=== PATIENT | male | born 2005 | race Caucasian/White ===

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

== ENCOUNTER 2024-01-24 05:06 | Emergency (ER) | payer OTHER, SELFPAY ==
[2024-01-24 05:08] VITALS: BP 151/100; PULSE 112; RESP 18; TEMP 36.8; O2SAT 100
--- NOTE | 2024-01-24 05:27 | ED.ANXIETY ---
HPI - Anxiety General Chief Complaint: Anxiety Stated Complaint: nvd Time Seen by Provider: 01/24/24 05:21 Source: patient Mode of arrival: ambulatory Limitations: no limitations History of Present Illness HPI narrative: This is a 18-year-old male who presents with anxiety and having panic attacks had nausea and vomiting earlier currently nauseated with no vomiting no fever chills no chest pain no shortness of breath has a history of anxiety. MD complaint: anxiety Onset (ago): day(s) Severity: moderate Quality: intermittent Provoking factors: emotional stress Relieving factors: nothing Exacerbating factors: nothing Related Data Home Medications Medication Instructions Recorded Confirmed atomoxetine 40 mg capsule 40 mg PO DAILY 01/24/24 01/24/24 Allergies Allergy/AdvReac Type Severity Reaction Status Date / Time acetaminophen Allergy Mild Unknown Verified 01/24/24 05:12 Review of Systems Review of Systems: All systems reviewed & are unremarkable except as noted in HPI and below PMFSH Past Medical History Medical History Anxiety Exam Const: General: healthy appearing and no acute distress Nutritional Appearance: well nourished Orientation/consciousness: patient oriented x3 Limitations: no limitations HENMT: Head: normal to inspection Neck: Neck: normal visual inspection Chest: Chest palpation & inspection: normal inspection of the chest Resp: Effort & Inspection: normal respiratory effort Auscultation: clear to auscultation bilaterally Cardio: Rate: regular rate Rhythm: regular rhythm GI: GI Palp: Yes Soft to palpation Auscultation: normal bowel sounds : General: Yes bladder normal to palpation Urinary Catheter: Urinary Catheter: patent and draining Back/Spine/Pelvis: Back: no CVA tenderness Skin: General skin exam: normal color Neuro: General: patient oriented x3, moves all extremities, no meningeal signs and no focal motor deficits Extrem: General: normal to inspection, no clubbing, cyanosis or edema and no pedal edema Psych: Affect: Anxious affect present Course Course Emergency Course: reviewed and I think normal limits patient received dose Zofran and Xanax reassessment of patient has symptoms have improved. Vital Signs Vital signs: Vital Signs Temperature 36.8 C 01/24/24 05:08 Pulse Rate 112 H 01/24/24 05:08 Respiratory Rate 18 01/24/24 05:08 Blood Pressure 151/100 H 01/24/24 05:08 Pulse Oximetry 100 01/24/24 05:08 Oxygen Delivery Room Air 01/24/24 05:08 Temperature 36.8 C 01/24/24 05:08 Pulse Rate 112 H 01/24/24 05:08 Respiratory Rate 18 01/24/24 05:08 Blood Pressure 151/100 H 01/24/24 05:08 Pulse Oximetry 100 01/24/24 05:08 Oxygen Delivery Room Air 01/24/24 05:08 Critical Care Time Critical Care Time Critical Care Time: No Discharge Plan Discharge Clinical Impression: Acute anxiety, Panic disorder Patient Disposition: Home, Self-Care Condition: Stable Instructions: Antibiotic Form, Panic Disorder (ED), Anxiety (ED) Additional Instructions: Advised take medicine as prescribed and follow-up with primary care within the next 3 to 4 days for further evaluation and treatment. Prescriptions: New alprazolam [Xanax] 0.5 mg tablet 0.5 mg PO BID PRN (Reason: anxiety) Qty: 20 0RF ondansetron 4 mg tablet,disintegrating 4 mg PO Q6H PRN (Reason: nausea and vomiting) Qty: 10 0RF potassium chloride 20 mEq tablet extended release 20 meq PO BID 3 Days Qty: 6 0RF No Action atomoxetine 40 mg capsule 40 mg PO DAILY Follow-up/Referrals: Jeanna,AKASH Reyes [Primary Care Provider] - Time of Disposition: 06:38
[2024-01-24] MEDS: ONDANSETRON HCL ODT 4 MG TABLET PO (05:34)
[2024-01-24] MEDS: ALPRAZolam (*CRX) 0.5 MG TABLET PO (05:34)
[2024-01-24 05:56] LABS: Basophils Absolute Auto 0.02 K/mm3 (0.00-0.10); Basophils Percent Auto 0.2 % (0.0-1.0); Eosinophils Absolute Auto 0.04 K/mm3 (0.02-0.50); Eosinophils Percent Auto 0.4 % (1.0-6.0); Hematocrit 42.9 % (40.0-54.0); Hemoglobin 14.8 g/dL (14.0-18.0); Immature Granulocyte Absolute 0.04 K/mm3 (0.00-0.00); Immature Granulocyte Percent A 0.4 % (0.0-0.0); Lymphocytes Absolute Auto 1.13 K/mm3 (1.10-4.50); Lymphocytes Percent Auto 11.4 % (18.0-42.0); Mean Corpuscular HGB Conc 34.5 g/dL (32-36); Mean Corpuscular Hemoglobin 27.7 pg (27.0-31.0); Mean Corpuscular Volume 80.2 fL (78.0-102.0); Mean Platelet Volume 9.8 fl (8.7-11.0); Monocytes Absolute Auto 0.33 K/mm3 (0.10-0.90); Monocytes Percent Auto 3.3 % (2.0-11.0); Neutrophils Absolute Auto 8.36 K/mm3 (1.70-7.20); Neutrophils Percent Auto 84.3 % (50.0-70.0); Platelet Count Result 226 K/mm3 (150-420); Red Blood Count 5.35 M/mm3 (4.70-6.10); Red Cell Distribution Width 11.4 % (11.6-14.4); White Blood Count 9.9 K/mm3 (4.8-10.8)
[2024-01-24 06:10] LABS: Alanine Aminotransferase 17 U/L (16-63); Albumin Level 4.4 g/dL (3.4-5.0); Alkaline Phosphatase 84 U/L (46-116); Anion Gap 8 mmol/L (4-12); Aspartate Amino Transferase 20 U/L (15-37); Bilirubin,Total 0.7 mg/dL (0.00-1.00); Blood Urea Nitrogen 10 mg/dL (7-18); Carbon Dioxide 30 mmol/L (21-32); Chloride 98 mmol/L (98-108); Estimated CRCL calculation 93 ml/min; Estimated Glomerular Filt Rate > 60; Glucose 93 mg/dL (70-99); Osmolality Calculated 281 mOsm/kg (285-295); Potassium 3.3 mmol/L (3.5-5.1); Sodium 136 mmol/L (136-145); Total Protein 7.6 g/dL (6.4-8.2)
[2024-01-24] MEDS: POTASSIUM BICARBONATE 25 MEQ TABEF 50 MEQ PO (06:40)
== END 2024-01-24 06:50 | disposition home or self-care (01) ==
LOC: CHSED 05:34
PROVIDERS: Emergency Provider Emergency Medicine; PCP Physician Assistant
DX: F41.0 Panic disorder [episodic paroxysmal anxiety] (principal)
CPT/HCPCS: 36415; 80053; 85025; 99283; A9270

== ENCOUNTER 2024-01-24 18:51 | Emergency (ER) | payer OTHER, SELFPAY ==
[2024-01-24 18:55] VITALS: BP 130/90; PULSE 101; RESP 18; TEMP 36.6; O2SAT 98
--- NOTE | 2024-01-24 19:05 | ED.NAVMDI ---
HPI - Nausea/Vomiting/Diarrhea General Chief complaint: Nausea/Vomiting/Diarrhea Stated complaint: vomiting Time Seen by Provider: 01/24/24 19:03 Source: patient and family Mode of arrival: ambulatory Limitations: no limitations History of Present Illness HPI Narrative: Patient is a 18-year-old male with anxiety and depression. He also has ADD. He does not take his anxiety or depression medicine regularly. He was seen this morning and given some Xanax and Zofran. He had a workup that was negative. He was found to have a panic attack. He is back in the emergency room with a panic attack again. I have given him another 1 of his 0.5 mg Xanax at this time and we will monitor him. We discussed that he needs to see his counselor and take his day-to-day medicine. MD elicited complaint: nausea and vomiting Pertinent past history: anorexia Onset (ago): day(s) Description of vomiting: watery Associated nausea: Yes Associated abdominal pain: No Location of pain: none Severity: mild Pain scale (0-10): 0 Exacerbating factors: other ( Recurrent panic and anxiety for the past 2 days) Relieving factors: other ( Xanax was helpful) Associated symptoms: nausea/vomiting, anxiety and other ( numbness and tingling; impending doom) Treatment prior to arrival: other ( Xanax and Zofran and potassium) Related Data Home Medications Medication Instructions Recorded Confirmed atomoxetine 40 mg capsule 40 mg PO DAILY 01/24/24 01/24/24 Allergies Allergy/AdvReac Type Severity Reaction Status Date / Time acetaminophen Allergy Mild Unknown Verified 01/24/24 05:12 Review of Systems Review of Systems: All systems reviewed & are unremarkable except as noted in HPI and below Constitutional: Constitutional: Reports no additional constitutional complaints Eyes: Eyes: Reports no additional eye complaints ENT: Reports system reviewed and no additional complaints, except as documented Cardiovascular: Cardiovascular: Reports no additional cardiovascular complaints Respiratory: Respiratory: Reports no additional respiratory complaints Gastrointestinal: Gastrointestinal: Reports no additional gastrointestinal complaints Genitourinary: Genitourinary: Reports no additional male genitourinary complaints Musculoskeletal: Musculoskeletal: Reports no additional musculoskeletal complaints Integumentary/Breasts: Skin/Breast: Reports system reviewed and no additional complaints, except as docu Neurologic: Reports system reviewed and no additional complaints, except as documented Psychiatric: Psychiatric: Reports no additional psychiatric complaints Endocrine: Endocrine: Reports no additional endocrine complaints Hematologic/Lymphatic: Hematologic/Lymphatic: Reports no additional hematologic/lymphatic complaints Allergic/Immunologic: Allergic/Immunologic: Reports no additional allergic/immunologic complaints [facility] Past Medical History Medical History Anxiety Social History Social History Substance use type: does not use Exam Const: General: healthy appearing Nutritional Appearance: well nourished Orientation/consciousness: patient oriented x3 Other: panicky and anxious HENMT: Head: normal to inspection Ears: external ears normal Face/Nose/Sinus: Normal external nose present Eyes: Conjunctivae: conjunctivae normal Cornea: corneas normal Pupils: Equal, round and reactive pupils present Neck: Neck: normal visual inspection Chest: Chest palpation & inspection: normal inspection of the chest Resp: Effort & Inspection: normal respiratory effort and not labored Auscultation: clear to auscultation bilaterally Cardio: Rate: regular rate Rhythm: regular rhythm Heart sounds: no murmurs GI: Inspection: non-distended GI Palp: Yes Soft to palpation and No Tenderness to palpation present (GI) Auscultation: normal bowel
[2024-01-24 20:15] VITALS: BP 115/79; PULSE 83; RESP 20; O2SAT 100
== END 2024-01-24 20:25 | disposition home or self-care (01) ==
PROVIDERS: Emergency Provider Emergency Medicine; PCP Physician Assistant
DX: F41.0 Panic disorder [episodic paroxysmal anxiety] (principal)
CPT/HCPCS: 99283

== ENCOUNTER 2024-02-11 05:48 | Emergency (ER) | payer OTHER, SELFPAY ==
[2024-02-11 05:48] VITALS: BP 137/85; PULSE 75; RESP 18; TEMP 36.6; O2SAT 95
--- NOTE | 2024-02-11 05:49 | ED.EAR ---
HPI - Ear Problem General Chief complaint: Unspecified Stated complaint: unspecified Time Seen by Provider: 02/11/24 05:48 Source: patient Mode of arrival: ambulatory Limitations: no limitations History of Present Illness HPI Narrative: 18-year-old male with a history of anxiety / depression, ADD presents to the ED with multiple complaints. He complains of -- numbness between his jaw and ear -- a rushing sensation going to his head -- abdominal discomfort -- anxiety the patient is on BuSpar, hydroxyzine, Zofran and Strattera. Location: right ear Relieving factors: nothing Exacerbating factors: nothing Discharge from ear: Reports no Related Data Home Medications Medication Instructions Recorded Confirmed buspirone 5 mg tablet 5 mg PO BID 02/11/24 02/11/24 hydroxyzine HCl 25 mg tablet 25 mg PO TID PRN Anxiety 02/11/24 02/11/24 Allergies Allergy/AdvReac Type Severity Reaction Status Date / Time acetaminophen Allergy Mild Unknown Verified 02/11/24 05:50 Review of Systems Review of Systems: All systems reviewed & are unremarkable except as noted in HPI and below Constitutional: Constitutional: Reports weakness Eyes: Eyes: Reports as per HPI and Reports no additional eye complaints ENT: Reports system reviewed and no additional complaints, except as documented, Reports as per HPI and Reports sore throat Comments: discomfort around his right ear. Cardiovascular: Cardiovascular: Reports as per HPI and Reports no additional cardiovascular complaints Respiratory: Respiratory: Reports as per HPI and Reports no additional respiratory complaints Gastrointestinal: Gastrointestinal: Reports as per HPI and Reports no additional gastrointestinal complaints Genitourinary: Genitourinary: Reports no additional male genitourinary complaints and Reports as per HPI Musculoskeletal: Musculoskeletal: Reports no additional musculoskeletal complaints and Reports as per HPI Integumentary/Breasts: Skin/Breast: Reports system reviewed and no additional complaints, except as docu and Reports as per HPI Neurologic: Reports system reviewed and no additional complaints, except as documented and Reports as per HPI Psychiatric: Psychiatric: Reports no additional psychiatric complaints and Reports as per HPI Endocrine: Endocrine: Reports no additional endocrine complaints and Reports as per HPI Hematologic/Lymphatic: Hematologic/Lymphatic: Reports no additional hematologic/lymphatic complaints and Reports as per HPI Allergic/Immunologic: Allergic/Immunologic: Reports no additional allergic/immunologic complaints and Reports as per HPI [facility] Past Medical History Medical History (Updated 02/11/24 @ 06:24 by Virgil Sheehan MD) Anxiety Panic Social History Social History Substance use type: does not use Exam Narrative: vitals are stable Const: General: healthy appearing and no acute distress Nutritional Appearance: well nourished Orientation/consciousness: patient oriented x3 Limitations: no limitations HENMT: Head: normal to inspection Ears: external ears normal Face/Nose/Sinus: Normal external nose present Face and sinus: normal facial exam Mouth: Yes Normal oral and palatal mucosa present Eyes: Conjunctivae: conjunctivae normal Pupils: Equal, round and reactive pupils present EOM: EOMs intact bilaterally Direct Ophthalmoscopy: no photophobia Neck: Neck: normal visual inspection, no lymphadenopathy and no meningeal signs Chest: Chest palpation & inspection: normal inspection of the chest Resp: Effort & Inspection: normal respiratory effort Auscultation: clear to auscultation bilaterally Cardio: Rate: regular rate Rhythm: regular rhythm GI: Other: no tenderness/ rigidity /rebound. : General: Yes no CVA tenderness Back/Spine/Pelvis: Back: no CVA tenderness Skin: General skin exam: normal color Other: Follicular
[2024-02-11] MEDS: ALPRAZolam (*CRX) 0.5 MG TABLET PO (06:29)
== END 2024-02-11 06:30 | disposition home or self-care (01) ==
PROVIDERS: Emergency Provider Internal Medicine Critical Care Medicine; PCP Physician Assistant
DX: F41.0 Panic disorder [episodic paroxysmal anxiety] (principal); Z79.899 Other long term (current) drug therapy
CPT/HCPCS: 99283; A9270

== ENCOUNTER 2024-02-14 07:08 | Emergency (ER) | payer OTHER, SELFPAY ==
[2024-02-14 07:08] VITALS: BP 148/100; PULSE 108; RESP 18; TEMP 36.8; O2SAT 98
--- NOTE | 2024-02-14 07:23 | ED.MALEGU ---
HPI - Male Genitourinary General Chief complaint: Urogenital-Male Stated complaint: Testicle Problem Time Seen by Provider: 02/14/24 07:10 Source: patient Mode of arrival: ambulatory Limitations: no limitations History of Present Illness HPI Narrative: Patient is a 18-year-old male with left testicle pain 20-30 minutes ago. This is an unprovoked event. No injury. He has some cloudy urine per complaints. MD Complaint: testicle pain ( Left) Onset (ago): minute(s) (30) Duration: constant Location: left testicle Radiation: left testicle Severity: moderate Severity scale (1-10): 4 Quality: sharp Relieving factors: none Exacerbating factors: palpation Context: other ( unprovoked left testicle pain) Associated symptoms: Reports denies other symptoms Related Data Home Medications Medication Instructions Recorded Confirmed buspirone 5 mg tablet 5 mg PO BID 02/11/24 02/11/24 hydroxyzine HCl 25 mg tablet 25 mg PO TID PRN Anxiety 02/11/24 02/11/24 Allergies Allergy/AdvReac Type Severity Reaction Status Date / Time acetaminophen Allergy Mild Unknown Verified 02/14/24 07:17 Review of Systems Review of Systems: All systems reviewed & are unremarkable except as noted in HPI and below Constitutional: Constitutional: Reports no additional constitutional complaints Eyes: Eyes: Reports no additional eye complaints ENT: Reports system reviewed and no additional complaints, except as documented Cardiovascular: Cardiovascular: Reports no additional cardiovascular complaints Respiratory: Respiratory: Reports no additional respiratory complaints Gastrointestinal: Gastrointestinal: Reports no additional gastrointestinal complaints Genitourinary: Genitourinary: Reports no additional male genitourinary complaints Musculoskeletal: Musculoskeletal: Reports no additional musculoskeletal complaints Integumentary/Breasts: Skin/Breast: Reports system reviewed and no additional complaints, except as docu Neurologic: Reports system reviewed and no additional complaints, except as documented Psychiatric: Psychiatric: Reports no additional psychiatric complaints Endocrine: Endocrine: Reports no additional endocrine complaints Hematologic/Lymphatic: Hematologic/Lymphatic: Reports no additional hematologic/lymphatic complaints Allergic/Immunologic: Allergic/Immunologic: Reports no additional allergic/immunologic complaints PMFSH Past Medical History Medical History Anxiety Panic Social History Social History Substance use type: does not use Exam Const: General: healthy appearing Nutritional Appearance: well nourished Limitations: no limitations HENMT: Head: normal to inspection Ears: TM's normal bilaterally Face/Nose/Sinus: Normal external nose present Eyes: Conjunctivae: conjunctivae normal Pupils: Equal, round and reactive pupils present EOM: EOMs intact bilaterally Neck: Neck: normal visual inspection Chest: Chest palpation & inspection: normal inspection of the chest Resp: Effort & Inspection: normal respiratory effort Auscultation: clear to auscultation bilaterally Cardio: Rate: regular rate Rhythm: regular rhythm Heart sounds: no murmurs GI: Inspection: non-distended GI Palp: Yes Soft to palpation and No Tenderness to palpation present (GI) Auscultation: normal bowel sounds : General: Yes bladder normal to palpation Testes: epididymal tenderness on the left, testicular swelling on the left and diffuse and testicular tenderness on the left Back/Spine/Pelvis: Back: no CVA tenderness Skin: General skin exam: normal color Rashes: no rashes Wounds: no wounds Neuro: General: patient oriented x3 Cranial nerves: Yes CN's II-XII intact bilaterally Speech: normal speech Gait exam (Neuro): Normal gait present Extrem: General: normal to inspection Psych: Mental Status: mental status fer
[2024-02-14 07:53] LABS: Appearance Urine Clear (Clear); Bilirubin Urine Negative (Negative); Blood Urine Trace-intact (Negative); Color Urine Light Yellow (Yellow); Glucose Urine UA Negative (Negative); Ketones Urine Negative (Negative); Leukocyte Esterase Ur Negative LEU/UL (Negative); Nitrate Urine Negative (Negative); Protein Urine Negative (Negative); Urobilinogen Urine 0.2 mg/dL (0.2-1.0)
[2024-02-14 07:58] LABS: Add Urine Microscopic? YES; RBC Urine 0-2 /hpf (0-2)
[2024-02-14 08:19] VITALS: BP 139/97; PULSE 98; RESP 18; O2SAT 97
[2024-02-14 10:11] VITALS: BP 131/90; PULSE 104; RESP 16; O2SAT 98
[2024-02-17 13:20] LABS: Chlamydia trachomatis NOT DETECTED (NOT DETECTE); Neisseria gonorrhoeae PCR NOT DETECTED (NOT DETECTE)
== END 2024-02-14 10:27 | disposition home or self-care (01) ==
PROVIDERS: Emergency Provider Emergency Medicine; PCP Physician Assistant
DX: N50.812 Left testicular pain (principal); Z11.3 Encounter for screening for infections with a predominantly sexual mode of transmission
CPT/HCPCS: 76870; 81001; 87491; 87591; 93976; 99283

== ENCOUNTER 2024-02-14 08:59 | Outpatient (CLI) | payer OTHER, SELFPAY ==
--- NOTE | ~2024-02-14 | US_ITS ---
US scrotum doppler DATE: 02/14/2024 09:34 INDICATION: Left scrotal intermittent pain TECHNIQUE: Real-time and color flow imaging of the scrotal contents, Doppler analysis of the testicle s COMPARISON: None FINDINGS: Right testicle measures 4.0 x 2.3 x 4.3 cm. There is homogeneous echotexture of the right t esticle, with no evidence of right testicular mass lesion. There is a 2 mm cyst in the head of the right epididymis. The left testicle measures 4.3 x 2.3 x 2.9 cm. There is homogeneous symmetric echotexture of the left testicle, no evidence of testicular mass lesion. Small left hydrocele. There is symmetric color flow signal of the testicles. IMPRESSION: No testicular mass lesion or torsion Small left hydrocele Reviewed, dictated and finalized at [facility] Reviewed, dictated and finalized at [facility].
== END 2024-02-14 09:00 | disposition home or self-care (01) ==
LOC: ANHED 09:07
PROVIDERS: PCP Physician Assistant; Visit Provider Emergency Medicine
DX: N50.812 Left testicular pain (principal); N43.3 Hydrocele, unspecified
CPT/HCPCS: 76870; 93976

== ENCOUNTER 2024-03-29 22:26 | Emergency (ER) | payer OTHER, SELFPAY ==
[2024-03-29 22:26] VITALS: BP 124/85; PULSE 87; RESP 18; TEMP 36.6; O2SAT 100
--- NOTE | 2024-03-29 22:44 | ED.ANXIETY ---
HPI - Anxiety General Chief Complaint: Anxiety Stated Complaint: Wellness Check Time Seen by Provider: 03/29/24 22:42 Source: patient Mode of arrival: ambulatory Limitations: no limitations History of Present Illness HPI narrative: patient is 18 years old white male came to the emergency room complaining of intermittent pain at the wrists, sometime at the knee and at the shoulder for the last 2 months. Over the last 2 days been seeing like diagonal line in his visual field when he closes eyes when you open his eyes, everything back to normal. He denies any fever, chills, nausea, vomiting, headache, or diplopia. Patient reported history of stress and bipolar started on new medication 1 month ago. Patient drop of by private car to the emergency room. patient is telling me that he does not have friends or girlfriend's or a shop. His been the most of his days inside the house. He denies any suicidal or homicidal ideation Related Data Home Medications Medication Instructions Recorded Confirmed buspirone 5 mg tablet 5 mg PO BID 02/11/24 03/29/24 hydroxyzine HCl 25 mg tablet 25 mg PO TID PRN Anxiety 02/11/24 03/29/24 bupropion HCl 150 mg 24 hr tablet, 150 mg PO DAILY 03/29/24 03/29/24 extended release lamotrigine 25 mg tablet 25 mg PO HS 03/29/24 03/29/24 Allergies Allergy/AdvReac Type Severity Reaction Status Date / Time acetaminophen Allergy Mild Unknown Verified 03/29/24 22:31 Review of Systems Review of Systems: All systems reviewed & are unremarkable except as noted in HPI and below PMFSH Past Medical History Medical History Anxiety Panic Social History Social History Substance use type: does not use Exam Narrative: General appearance: Well-developed, well-nourished Skin: Normal color Head: Normocephalic, nontraumatic Eyes: Clear conjunctiva ENT: Oropharynx normal, ears normal, nose normal Neck: Supple, nontender Chest and respiratory: Airway patent, no respiratory distress, no accessory muscle use Heart: Regular rate/rhythm Abdomen: Soft, nontender, no organomegaly, quiet bowel sounds Vascular: Normal peripheral pulses, normal capillary refill. Musculoskeletal: Normal range of motion, nontender back Neurologic: Alert and oriented ?3, [employer] is normal as tested, no gross motor deficit Course Vital Signs Vital signs: Vital Signs Temperature 36.6 C 03/29/24 22:26 Pulse Rate 87 03/29/24 22:26 Respiratory Rate 18 03/29/24 22:26 Blood Pressure 124/85 03/29/24 22:26 Pulse Oximetry 100 03/29/24 22:26 Oxygen Delivery Room Air 03/29/24 22:26 Temperature 36.6 C 03/29/24 22:26 Pulse Rate 87 03/29/24 22:26 Respiratory Rate 18 03/29/24 22:26 Blood Pressure 124/85 03/29/24 22:26 Pulse Oximetry 100 03/29/24 22:26 Oxygen Delivery Room Air 03/29/24 22:26 MDM - Anxiety MDM Narrative Medical decision making narrative: patient's symptoms are not consistent with any specific organs, Anxiety related symptom is my concern. Currently on buspirone which can cause blurred vision, and hydroxyzine 25 mg t.i.d. My plan to stop buspiron and increase hydroxyzine to 50 mg q.i.d. Critical Care Time Critical Care Time Critical Care Time: No Discharge Plan Discharge Clinical Impression: Anxiety Patient Disposition: Home, Self-Care Condition: Stable Instructions: Anxiety (ED) Additional Instructions: Return if symptoms are worsening , call your family physician for appointment, take Tylenol as as needed for aches and pain, continue home medications.,stop buspirone, in
== END 2024-03-29 23:13 | disposition home or self-care (01) ==
PROVIDERS: Emergency Provider Emergency Medicine; PCP Physician Assistant
DX: F41.9 Anxiety disorder, unspecified (principal); Z79.899 Other long term (current) drug therapy
CPT/HCPCS: 99281

== ENCOUNTER 2025-03-05 22:19 | Emergency (ER) | payer OTHER, SELFPAY ==
[2025-03-05 22:19] VITALS: BP 147/93; PULSE 83; RESP 18; TEMP 37.4; O2SAT 97
--- NOTE | 2025-03-05 22:31 | ED_ITS ---
HPI - General Adult General Chief complaint: Ear Stated complaint: head pressure Time Seen by Provider: 03/05/25 22:22 History of Present Illness HPI narrative: Nacho is a 19M with a PMH of anxiety and recurrent sinus infections that presented to the ED with a week of bilateral sinus pressure worse with leaning foreword. He also has ear fullness. No CP or dyspnea. Related Data Home Medications ?Medication ?Instructions ?Recorded ?Confirmed ?Last Taken ?Type buspirone 5 mg tablet 5 mg PO BID 02/11/24 03/29/24 Unknown History hydroxyzine HCl 25 mg tablet 25 mg PO TID PRN Anxiety 02/11/24 03/29/24 Unknown History bupropion HCl 150 mg 24 hr tablet, 150 mg PO DAILY 03/29/24 03/29/24 Unknown History extended release lamotrigine 25 mg tablet 25 mg PO HS 03/29/24 03/29/24 Unknown History Allergies Allergy/AdvReac Type Severity Reaction Status Date / Time acetaminophen Allergy Mild Unknown Verified 03/29/24 22:31 Review of Systems Review of Systems: All systems reviewed & are unremarkable except as noted in HPI and below [facility] Past Medical History Medical History Panic Anxiety Social History Social History Substance use type: does not use Exam Const: General: cooperative, healthy appearing, comfortable, no acute distress, well developed, alert, awake and Physically active Orientatio n/consciousness: oriented to person, oriented to place and oriented to time HENMT: Head: normal to inspection, normocephalic and atraumatic Ears: hearing grossly normal bilaterally and external ears normal Face/Nose/Sinus: Normal external nose present Other: Enlarged and erythematous nasal turbinates Eyes: General: appearance normal, both eyes and all related structures Periorbital: periorbital findings normal Sclera: sclerae normal Pupils: Equal, round and reactive pupils present Neck: Neck: normal visual inspection Chest: Chest palpation & inspection: normal inspection of the chest Resp: Effort & Inspection: normal respiratory effort, able to speak in complete sentences and no respiratory distress Cardio: Jugular venous distension: no JVD Skin: General skin exam: normal color and no rashes or lesions noted Neuro: General: oriented to person, oriented to place and oriented to time Cranial nerves: Yes Equal, round and reactive pupils present Extrem: General: normal to inspection Course Vital Signs Vital signs: Vital Signs Temperature 99.3 F 03/05/25 22:19 Pulse Rate 83 03/05/25 22:19 Respiratory Rate 18 03/05/25 22:19 Blood Pressure 147/93 H 03/05/25 22:19 Pulse Oximetry 97 03/05/25 22:19 Oxygen Delivery Room Air 03/05/25 22:19 Temperature 99.3 F 03/05/25 22:19 Pulse Rate 83 03/05/25 22:19 Respiratory Rate 18 03/05/25 22:19 Blood Pressure 147/93 H 03/05/25 22:19 Pulse Oximetry 97 03/05/25 22:19 Oxygen Delivery Room Air 03/05/25 22:19 Medical Decision Making Vital Signs Vital Signs: Vital Signs Temperature 99.3 F 03/05/25 22:19 Pulse Rate 83 03/05/25 22:19 Respiratory Rate 18 03/05/25 22:19 Blood Pressure 147/93 H 03/05/25 22:19 Pulse Oximetry 97 03/05/25 22:19 Oxygen Delivery Room Air 03/05/25 22:19 Temperature 99.3 F 03/05/25 22:19 Pulse Rate 83 03/05/25 22:19 Respiratory Rate 18 03/05/25 22:19 Blood Pressure 147/93 H 03/05/25 22:19 Pulse Oximetry 97 03/05/25 22:19 Oxygen Delivery Room Air 03/05/25 22:19 Discharge Plan Discharge Clinical Impression: Sinusitis Patient Disposition: Home Condition: Stable Instructions: Antibiotic Form Patient Language: [place] Prescriptions: New amoxicillin-pot clavulanate 875-125 mg tablet 1 tablet PO Q12H Qty: 10 0RF No Action buspirone 5 mg tablet 5 mg PO BID hydroxyzine HCl 25 mg tablet 25 mg PO TID PRN (Reason: Anxiety) lamotrigine 25 mg tablet 25 mg PO HS bupropion HCl 150 mg tablet extended release 24 hr 150 mg PO DAILY Follow-up/Referrals: Jeanna,AKASH Reyes [Primary Care Provider] -
== END 2025-03-05 22:50 | disposition home or self-care (01) ==
LOC: CHSED 22:47
PROVIDERS: Emergency Provider Family Medicine; PCP Physician Assistant
DX: J32.9 Chronic sinusitis, unspecified (principal)
CPT/HCPCS: 99283; A9270

== ENCOUNTER 2025-03-27 05:06 | Emergency (ER) | payer OTHER, SELFPAY ==
[2025-03-27 05:10] VITALS: BP 158/98; PULSE 83; RESP 18; TEMP 36.5; O2SAT 96
--- NOTE | 2025-03-27 05:35 | ED.GENADULT ---
HPI - General Adult General Chief complaint: Dizziness Stated complaint: dizzy History of Present Illness HPI narrative: Nacho is a 19M with a PMH of anxiety and recurrent sinus infections that presented to the ED with less than a day of vertigo. He feels off balance and the world seems like it is spinning. It is worse with rapid head movement and better with staying still. It is associated with nausea. Related Data Home Medications ?Medication ?Instructions ?Recorded ?Confirmed ?Last Taken ?Type buspirone 5 mg tablet 5 mg PO BID 02/11/24 03/29/24 Unknown History hydroxyzine HCl 25 mg tablet 25 mg PO TID PRN Anxiety 02/11/24 03/29/24 Unknown History bupropion HCl 150 mg 24 hr tablet, 150 mg PO DAILY 03/29/24 03/29/24 Unknown History extended release lamotrigine 25 mg tablet 25 mg PO HS 03/29/24 03/29/24 Unknown History Allergies Allergy/AdvReac Type Severity Reaction Status Date / Time acetaminophen Allergy Mild Unknown Verified 03/27/25 05:25 Review of Systems Review of Systems: All systems reviewed & are unremarkable except as noted in HPI and below [facility] Past Medical History Medical History Panic Anxiety Social History Social History Substance use type: does not use Exam Const: General: cooperative, healthy appearing, comfortable, no acute distress, well developed, alert, awake and Physically active Orientation/consciousness: oriented to person, oriented to place and oriented to time HENMT: Head: normal to inspection, normocephalic and atraumatic Ears: hearing grossly normal bilaterally and external ears normal Face/Nose/Sinus: Normal external nose present Eyes: General: appearance normal, both eyes and all related structures Periorbital: periorbital findings normal Sclera: sclerae normal Pupils: Equal, round and reactive pupils present Neck: Neck: normal visual inspection Chest: Chest palpation & inspection: normal inspection of the chest Resp: Effort & Inspection: normal respiratory effort, able to speak in complete sentences and no respiratory distress Cardio: Jugular venous distension: no JVD Skin: General skin exam: normal color and no rashes or lesions noted Neuro: General: oriented to person, oriented to place and oriented to time Cranial nerves: Yes Equal, round and reactive pupils present Other: -CNII-XII intact as tested -Multiple beats of rapid nystagmus bilaterally. Remainder of HINTS is normal. Extrem: General: normal to inspection Course Course Emergency Course: given instructions on how to do the Tyron maneuver at home Vital Signs Vital signs: Vital Signs Temperature 97.7 F 03/27/25 05:10 Pulse Rate 83 03/27/25 05:10 Respiratory Rate 18 03/27/25 05:10 Blood Pressure 158/98 H 03/27/25 05:10 Pulse Oximetry 96 03/27/25 05:10 Oxygen Delivery Room Air 03/27/25 05:10 Temperature 97.7 F 03/27/25 05:10 Pulse Rate 83 03/27/25 05:10 Respiratory Rate 18 03/27/25 05:10 Blood Pressure 158/98 H 03/27/25 05:10 Pulse Oximetry 96 03/27/25 05:10 Oxygen Delivery Room Air 03/27/25 05:10 Medical Decision Making Vital Signs Vital Signs: Vital Signs Temperature 97.7 F 03/27/25 05:10 Pulse Rate 83 03/27/25 05:10 Respiratory Rate 18 03/27/25 05:10 Blood Pressure 158/98 H 03/27/25 05:10 Pulse Oximetry 96 03/27/25 05:10 Oxygen Delivery Room Air 03/27/25 05:10 Temperature 97.7 F 03/27/25 05:10 Pulse Rate 83 03/27/25 05:10 Respiratory Rate 18 03/27/25 05:10 Blood Pressure 158/98 H 03/27/25 05:10 Pulse Oximetry 96 03/27/25 05:10 Oxygen Delivery Room Air 03/27/25 05:10 Discharge Plan Discharge Clinical Impression: Benign paroxysmal positional vertigo Patient Disposition: Home Condition: Stable Instructions: Benign Paroxysmal Positional Vertigo (ED) Patient Language: Maltese Prescriptions: New meclizine 25 mg tablet 25 mg PO TID PRN (Reason: dizziness) Qty: 20 0RF No Action buspirone 5 mg tablet 5 mg PO BID hydroxyzine HCl 25 mg tablet 25 mg PO TID PRN (Reason: Anxiety) lamotrigine 25 mg tablet 25 mg PO HS bupropion HCl 150 mg tablet extended release 24 hr 150 mg PO DAILY amoxicillin-pot clavulanate 875-125 mg tablet 1 tablet PO Q12H Qty: 10 0RF Follow-up/Referrals: Jeanna,AKASH Reyes [Primary Care Provider, Unknown]
[2025-03-27 05:55] VITALS: BP 134/84; PULSE 72; RESP 20; O2SAT 100
== END 2025-03-27 05:55 | disposition home or self-care (01) ==
PROVIDERS: Emergency Provider Family Medicine; PCP Physician Assistant
DX: H81.10 Benign paroxysmal vertigo, unspecified ear (principal)
CPT/HCPCS: 99283

== ENCOUNTER 2025-07-17 15:45 | Outpatient (RCR) | payer OTHER, SELFPAY ==
--- NOTE | 2025-04-26 12:11 | OPREHPOC ---
Outpatient Therapy Plan of Care This is a Multidisciplinary Plan of Care that may contain components documented by all disciplines (PT, OT, and ST.) PT Problem 1 PT Problem #1 Knowledge Deficit PT Goal 1 Goal / Goal Update The patient will be independent in a home exercise program. Target Visit 2 PT Problem 2 PT Problem #2 Pain PT Goal 1 Goal / Goal Update The patient will report no greater than 2/10 right knee pain with walking of 30 minutes. Target Visit 8 PT Problem 3 PT Problem #3 Impaired Functional Mobility PT Goal 1 Goal / Goal Update The patient will demonstrate 10% or less self perceived disability per the LEFS. The patient will ambulate 1,200 feet during the 6 MWT with 1/10 or less right knee pain. The patient will ascend/descend a flight of stairs reciprocally without right knee pain. Target Visit 8 PT Problem 4 PT Problem #4 Impaired Range of Motion PT Goal 1 Goal / Goal Update The patient will demonstrate 0 degrees bilateral knee extension AROM. Target Visit 8 PT Problem 5 PT Problem #5 Impaired Strength PT Goal 1 Goal / Goal Update The patient will demonstrate at least 4/5 bilateral knee extension, hip abduction, and hip extension strength in order to support the knee for recreational activities. Target Visit 8
--- NOTE | 2025-04-26 12:12 | PTOPEVAL1 ---
Assessment and note entered by Beatrice Pearce PT Evaluation Information Assessment Status Evaluation ICD-10 Condition Codes (PT) Pain in right knee M25.561 Subjective Information Pt reports his right knee has been popping for the last month when he moves his knee up and down and occasionally at random. He notes increased pain in the right leg with walking more than 7 blocks. He was at a routine check up with the doctor and brought up the knee symptoms. She did an evaluation and referred him to PT. He was noting pain when the doctor moved his leg up. He also notes pain leaving his knee straight for awhile. He reports he did start walking more for exercise prior to the onset of the pain and popping. He denies previous injury to the knee. Reported Pain Level Pain Score 3: Self Report Assessment PT Clinical Summary Nacho Cooper presents with right knee pain that started approximately one month ago after initiating a walking program for exercise. He presents with anterior right knee pain that increases with walking, repetitive knee flexion, and prolonged knee extension. He demonstrates decreased and painful right knee extension AROM, decreased bilateral hamstring flexibility, positive special tests for patellofemoral syndrome , and decreased right > left knee and hip strength . He will benefit from skilled PT to address these limitations. Plan of Care Interventions Electrical Stimulation,Hot Pack/Cold Pack,Manual Therapy,Neuro Re-education,Patient/Caregiver Education,Therapeutic Activities,Therapeutic Exercise,Self-Care/Home Management,Ultrasound PT Services Indicated Yes Treatment Frequency and 2 times a week for 8 visits Duration These treatments will address the objective and functional deficits as defined above. The patient will be advanced safely and appropriately in order for the patient to progress towards his/her prior level of function. Additional exercises will be introduced and as well as a comprehensive home exercise program upon discharge, if needed, ?to ensure carryover of functional gains achieved in the clinic. This treatment plan has been reviewed and agreement upon by the patient.
--- NOTE | 2025-04-28 17:33 | PCPTNOTE ---
No call, no show.
--- NOTE | 2025-06-08 09:43 | PCPTNOTE ---
Cancelled session. Reports something came up and he cannot make it.
--- NOTE | 2025-06-09 16:41 | PCPTNOTE ---
No call, no show.
--- NOTE | 2025-07-06 15:48 | PCPTNOTE ---
No call no show. left for pt.
--- NOTE | 2025-07-17 16:33 | OPREHPOC ---
Outpatient Therapy Plan of Care This is a Multidisciplinary Plan of Care that may contain components documented by all disciplines (PT, OT, and ST.) PT Problem 1 PT Problem #1 Knowledge Deficit PT Goal 1 Goal / Goal Update The patient will be independent in a home exercise program. Target Visit 2 Progress Met PT Problem 2 PT Problem #2 Pain PT Goal 1 Goal / Goal Update The patient will report no greater than 2/10 right knee pain with walking of 30 minutes. Target Visit 8 Progress Met PT Problem 3 PT Problem #3 Impaired Functional Mobility PT Goal 1 Goal / Goal Update The patient will demonstrate 10% or less self perceived disability per the LEFS. The patient will ambulate 1,200 feet during the 6 MWT with 1/10 or less right knee pain. -met The patient will ascend/descend a flight of stairs reciprocally without right knee pain. Target Visit 8 Progress Partially Met PT Problem 4 PT Problem #4 Impaired Range of Motion PT Goal 1 Goal / Goal Update The patient will demonstrate 0 degrees bilateral knee extension AROM. Target Visit 8 Progress Met PT Problem 5 PT Problem #5 Impaired Strength PT Goal 1 Goal / Goal Update The patient will demonstrate at least 4/5 bilateral knee extension, hip abduction, and hip extension strength in order to support the knee for recreational activities. Target Visit 8 Progress Met
--- NOTE | 2025-07-17 16:33 | PTOPDC ---
Assessment and note entered by Kaye Woods, PT Evaluation Information Assessment Status Discharge ICD-10 Condition Codes (PT) Pain in right knee M25.561 Subjective Information Pt reports he could be better because he has a headache. He states his knees still pop but it's less frequent and his pain has also reduced. He has been indep with his home stretches and feels good enough to discharge this date, and he would like an updated printout for home exercises. Reported Pain Level Pain Score 1,1: Self Report Assessment PT Clinical Summary Mr. Cooper has attended 8 skilled PT visits for bilat knee pain and popping when walking. Since starting PT he notes overall reduction in knee pain and popping and reports popping only when standing up out of a chair. He has been indep with his HEP and has met or partially met all therapeutic goals for him and is appropriate for discharge from skilled PT this date. Pt was educated in additional HEP exercises with updated handout provided. Plan of Care PT Services Indicated No
== END 2025-07-17 20:00 | disposition home or self-care (01) ==
LOC: CHSPT 15:45
PROVIDERS: Visit Provider Physician Assistant
DX: M25.561 Pain in right knee (principal)
CPT/HCPCS: 97014; 97110; 97112; 97161; 97530; G0283